=== PATIENT | male | born 1935 | race Caucasian/White ===

== ENCOUNTER 2016-05-09 11:51 | Emergency (ER) | payer MEDICARE, OTHER ==
[2016-05-09 12:58] LABS: BASOPHIL 0.6 % (0-2); EOSINOPHIL 1.7 % (0-7); HCT 41.9 % (42.0-52.0); HGB 14.2 g/dl (13.2-18.0); LYMPHOCYTE 30.3 % (15-48); MCHC 33.9 g/dL (32.0-36.0); MCV 88.6 fL (78.0-100.0); MONOCYTE 7.3 % (0-12); MPV 11.1 fL (6.0-9.5); NEUTROPHIL 60.1 % (41-80); PLT 161 K/uL (150-400); RBC 4.73 M/uL (4.70-6.00); RDW 13.6 % (11.5-14.0); WBC 5.5 K/uL (4.0-10.5)
[2016-05-09 13:08] LABS: ALBUMIN 4.6 g/dL (3.4-4.8); BILIRUBIN - TOTAL 0.5 mg/dL (0.1-1.0); CREATININE 1.2 mg/dL (0.7-1.2); GLOBULIN (CALCULATION) 2.5 g/dL (2.2-4.2); POTASSIUM 3.8 mmol/L (3.5-5.1); TOTAL PROTEIN 7.1 g/dL (6.4-8.3)
== END 2016-05-09 15:55 | disposition home or self-care (01) ==
LOC: FER 11:51
PROVIDERS: Internal Medicine
DX: R07.89 Other chest pain (principal); R00.2 Palpitations; I10 Essential (primary) hypertension; E03.9 Hypothyroidism, unspecified; Z87.891 Personal history of nicotine dependence; Z98.61 Coronary angioplasty status
CPT/HCPCS: 36415; 71010; 80053; 84484; 85025; 93005

== ENCOUNTER 2020-12-21 12:34 | Emergency (ER) | payer MEDICARE, OTHER ==
[~2020-12-21] VITALS: Ht 182.9 cm; Wt 97.5 kg
== END 2020-12-21 14:42 | disposition home or self-care (01) ==
LOC: FER 12:34
DX: S51.812A Laceration without foreign body of left forearm, initial encounter (principal); S61.212A Laceration without foreign body of right middle finger without damage to nail, initial encounter; S00.12XA Contusion of left eyelid and periocular area, initial encounter; S60.221A Contusion of right hand, initial encounter; H53.452 Other localized visual field defect, left eye; R07.81 Pleurodynia; W01.0XXA Fall on same level from slipping, tripping and stumbling without subsequent striking against object, initial encounter; Y92.481 Parking lot as the place of occurrence of the external cause
CPT/HCPCS: 70450; 71250